=== PATIENT | female | born 1990 | race Caucasian/White ===

== ENCOUNTER 2022-04-28 08:10 | Emergency (ER) | payer BC, OTHER ==
[2022-04-28] MEDS ORDERED: LORazepam 2 MG/ML SDV IVPUSH ONE (08:24)
== END 2022-04-28 10:49 | disposition home or self-care (01) ==
LOC: JP.ED 08:10
DX: R07.89 Other chest pain (principal); F45.8 Other somatoform disorders; Z88.0 Allergy status to penicillin; Z88.5 Allergy status to narcotic agent
CPT/HCPCS: 36415; 36600; 71046; 80053; 82803; 84484; 85025; 85379; 96374; 99285; J2060